=== PATIENT | female | born 1975 | race African-American/Black ===

== ENCOUNTER 2017-02-21 17:03 | Emergency (ER) | payer OTHER ==
[~2017-02-21] VITALS: Ht 167.6 cm; Wt 71.0 kg
[~2017-02-21 17:03] MED LIST: CLIN150 PO; TRAM50 PO; Z.0.NO CURRENT MEDS
[2017-02-21 17:04] VITALS: BP 185/97; PULSE 95; RESP 12; TEMP 98; O2SAT 99
[2017-02-21] MEDS ORDERED: SODIUM CHLOR 0.9% 1000 ML INJ 1,000 ML IV SCH (17:23)
[2017-02-21] MEDS: RESP: ALBUTEROL 2.5 MG/IPRATROPIUM 0.5 MG NEB (SCH) INH (17:28)
--- NOTE | 2017-02-21 17:28 | PD ---
HPI Chief Complaint: Allergic/Adverse Reaction Time Seen by Provider: 17:15 Travel History International Travel<30 days: No Contact w/Intl Traveler<30days: No Traveled to known affect area: No History of Present Illness HPI 41-year-old female presents to emergency department with an allergic reaction after taking amoxicillin last night. Patient states that amoxicillin was spilled from a jar and she placed in an unmarked bottle. She accidently took the medication last night and developed mild swelling in her right neck this morning. Says she feels 'tightness' in her neck but denies SOB. Patient denies fever, chills. Denies chest pain. Denies nausea, vomiting, or diarrhea. States that she took "4 Benadryl's this morning" but still has some tightness. Patient has a known history of penicillin allergy in her youth and has never taken penicillin after this discovery. Patient denies chronic medical issues except for asthma which is well controlled. Patient states that she had the Amoxil and in her bathroom because her sister was taking it. PFSH Past Medical History Asthma: Yes Diminished Hearing: No ?: Not LMP: 01/2017 Social History Alcohol Use: Yes (6 PK BEER A WEEK) Tobacco Use: Yes (1 PK DAY) Substance Use: No Allergies-Medications (Allergen,Severity, Reaction): Coded Allergies: penicillin G (Unverified Allergy, Mild, RASH, 02/21/17) Uncoded Allergies: LATEX (Allergy, Severe, Anaphylaxis, 02/21/17) Reported Meds & Prescriptions Reported Meds & Active Scripts Active Ultram (Tramadol HCl) 50 Mg Tab 50 Mg PO Q4HPRN FOR PAIN Cleocin (Clindamycin HCl) 150 Mg Cap 300 Mg PO Q6 10 Days Reported No Current Meds (Miscellaneous Medication) Misc Review of Systems Except as stated in HPI: all other systems reviewed are Neg Physical Exam Narrative GENERAL: Well-developed well-nourished in no apparent distress SKIN: Focused skin assessment warm/dry. HEAD: Atraumatic. Normocephalic. EYES: Pupils equal and round. No scleral icterus. No injection or drainage. ENT: No nasal bleeding or discharge. Mucous membranes pink and moist. No pharyngeal injection, edema. NECK: Trachea midline. No JVD. Mild soft tissue edema to the right anterior cervical neck region. CARDIOVASCULAR: Regular rate and rhythm. No murmur appreciated. RESPIRATORY: No accessory muscle use. Clear to auscultation. Breath sounds equal bilaterally. Mild end expiratory wheeze GASTROINTESTINAL: Abdomen soft, non-tender, nondistended. MUSCULOSKELETAL: No obvious deformities. No clubbing. No cyanosis. No edema. NEUROLOGICAL: Awake and alert. No obvious cranial nerve deficits. Motor grossly within normal limits. Normal speech. PSYCHIATRIC: Appropriate mood and affect; insight and judgment normal. Data Data Last Documented VS Vital Signs Date Time Temp Pulse Resp B/P (MAP) Pulse Ox O2 Delivery O2 Flow Rate FiO2 02/21/17 18:22 82 16 100 Room Air 02/21/17 17:04 98.0 Orders Orders Ecg Monitoring (02/21/17 17:23) Iv Access Insert/Monitor (02/21/17 17:23) Oximetry (02/21/17 17:23) Diphenhydramine Inj (Benadryl Inj) (02/21/17 17:30) Methylprednisolone So Succ Inj (Solumedr (02/21/17 17:30) Famotidine Inj (Pepcid Inj) (02/21/17 17:30) Albuterol-Ipratropium Neb (Duoneb Neb) (02/21/17 17:30) Sodium Chlor 0.9% 1000 Ml Inj (Ns 1000 M (02/21/17 17:23) Sodium Chloride 0.9% Flush (Ns Flush) (02/21/17 17:30) Diphenhydramine Inj (Benadryl Inj) (02/21/17 18:30) Ed Discharge Order (02/21/17 20:06) MDM Medical Decision Making Medical Screen Exam Complete: Yes Emergency Medical Condition: Yes Differential Diagnosis Allergic reaction, anaphylaxis, asthma exacerbation Narrative Course 41-year-old female presents to emergency department with an allergic reaction after taking amoxicillin last night. Patient states that amoxicillin was spilled from a jar and she placed in an unmarked bottle. She accidently took the medication last night and developed mild swelling in her right neck this morning. Says she feels 'tightness' in her neck but denies SOB. Patient denies fever, chills. Denies chest pain. Denies nausea, vomiting, or diarrhea. States that she took "4 Benadryl's this morning" but still has some tightness. Patient has a known history of penicillin allergy in her youth and has never taken penicillin after this discovery. Patient denies chronic medical issues except for asthma which is well controlled. Patient states that she had the Amoxil and in her bathroom because her sister was taking it. Vital signs stable. Physical exam demonstrates mild soft tissue swelling of the right neck. Pharynx non edematous. Pt states she feels much better after Duonebs and Solumedrol. Pt will be observed. Pt dispo and discharge pending as of transfer of care to Rylan Martinez PA-C. Diagnosis Primary Impression: Allergic reaction caused by a drug Qualified Codes: T78.40XA - Allergy, unspecified, initial encounter Additional Instructions: Follow up with your primary care physician within 2-3 days. If your symptoms persist or worsen, return to the emergency department Take all medications as prescribed. If your symptoms persist or worsen, return to the emergency department. Disposition: 01 DISCHARGE HOME Condition: Stable Moni Birmingham Feb 21, 2017 17:28
[2017-02-21] MEDS ORDERED: SODIUM CHLORIDE 0.9% FLUSH 10 ML FLUSH IV FLUSH PRN (17:30)
[2017-02-21] MEDS ORDERED: methylPREDNISolone SOD SUCC 125 MG/2 ML VIAL IV PUSH ONE (17:30)
[2017-02-21] MEDS ORDERED: diphenhydrAMINE HCL 50 MG/ML VIAL IM ONE (17:30)
[2017-02-21] MEDS ORDERED: FAMOTIDINE 20 MG/2 ML VIAL IV PUSH ONE (17:30)
[2017-02-21 18:22] VITALS: PULSE 82; RESP 16; O2SAT 100
[2017-02-21] MEDS ORDERED: diphenhydrAMINE HCL 50 MG/ML VIAL IV PUSH ONE (18:30)
--- NOTE | 2017-02-21 20:07 | PD ---
Physical Exam Time Seen by Provider: 20:00 Data Data Last Documented VS Vital Signs Date Time Temp Pulse Resp B/P (MAP) Pulse Ox O2 Delivery O2 Flow Rate FiO2 02/21/17 18:22 82 16 100 Room Air 02/21/17 17:04 98.0 Orders Orders Ecg Monitoring (02/21/17 17:23) Iv Access Insert/Monitor (02/21/17 17:23) Oximetry (02/21/17 17:23) Diphenhydramine Inj (Benadryl Inj) (02/21/17 17:30) Methylprednisolone So Succ Inj (Solumedr (02/21/17 17:30) Famotidine Inj (Pepcid Inj) (02/21/17 17:30) Albuterol-Ipratropium Neb (Duoneb Neb) (02/21/17 17:30) Sodium Chlor 0.9% 1000 Ml Inj (Ns 1000 M (02/21/17 17:23) Sodium Chloride 0.9% Flush (Ns Flush) (02/21/17 17:30) Diphenhydramine Inj (Benadryl Inj) (02/21/17 18:30) Ed Discharge Order (02/21/17 20:06) [facility] Medical Record Reviewed: Yes Supervised Visit with JULY: No Narrative Course This patient was signed out to me to discharge once her symptoms improve. Please see previous providers notes. She developed some right-sided neck swelling after inadvertently taking some amoxicillin yesterday. On my examination there are no abnormalities and the patient feels improved. She is stable for discharge. Diagnosis Primary Impression: Allergic reaction caused by a drug Qualified Codes: T78.40XA - Allergy, unspecified, initial encounter Additional Instruction: Follow up with your primary care physician within 2-3 days. If your symptoms persist or worsen, return to the emergency department Take all medications as prescribed. If your symptoms persist or worsen, return to the emergency department. Med/Other Pt SpecificInfo: No Change to Meds Disposition: 01 DISCHARGE HOME Condition: Stable Rylan Foley Feb 21, 2017 20:07
== END 2017-02-21 20:50 | disposition home or self-care (01) ==
LOC: NEPD 17:03
DX: R07.89 Other chest pain (principal); T36.0X5A Adverse effect of penicillins, initial encounter; J45.909 Unspecified asthma, uncomplicated; F17.200 Nicotine dependence, unspecified, uncomplicated
CPT/HCPCS: 94640; 94664; 96361; 96372; 96374; 96375; 99284; J1200; J2930; J7030